=== PATIENT | male | born 1980 | race Caucasian/White ===

== ENCOUNTER 2020-12-12 05:45 | Emergency (ER) | payer OTHER ==
[2020-12-12] MEDS ORDERED: CYCLOBENZAPRINE10 MG PO (10:37)
[2020-12-12] MEDS ORDERED: PREDNISONE20 MG PO (10:37)
[2020-12-12] MEDS ORDERED: PERCOCET 5-3251 EACH PO (10:37)
== END 2020-12-12 11:00 | disposition home or self-care (01) ==
LOC: ER1 05:45
DX: M51.26 Other intervertebral disc displacement, lumbar region (principal); M51.36 Other intervertebral disc degeneration, lumbar region; Z87.828 Personal history of other (healed) physical injury and trauma; Z98.890 Other specified postprocedural states; X50.9XXA Other and unspecified overexertion or strenuous movements or postures, initial encounter; Y92.89 Other specified places as the place of occurrence of the external cause; Y99.0 Civilian activity done for income or pay
CPT/HCPCS: 72131; 96374; 96375; 99284; J1200; J2270; J2360; J2405; J2930; J3360